=== PATIENT | male | born 1945 | race Caucasian/White ===

== ENCOUNTER 2024-02-23 17:20 | Emergency (ER) | payer OTHER ==
[~2024-02-23] VITALS: Ht 177.8 cm; Wt 77.2 kg
[2024-02-23] MEDS ORDERED: ETOMIDATE (2MG/ML) 20ML VIAL IV ONE (17:26)
[2024-02-23] MEDS ORDERED: MIDAZOLAM DRIP 50 mg/50mL 50 ML IV ONE (17:27)
[2024-02-23] MEDS ORDERED: ROCURONIUM 10MG/ML 10ML VIAL IV ONE (17:28)
[2024-02-23] MEDS ORDERED: MIDAZOLAM DRIP 50 mg/50mL 50 ML IV SCH (17:30)
[2024-02-23] MEDS: ETOMIDATE (2MG/ML) 20ML VIAL IV ONE (17:31)
[2024-02-23] MEDS: ROCURONIUM 10MG/ML 10ML VIAL IV ONE (17:31)
[2024-02-23] MEDS: NOREPINEPHRINE 8 MG/250ML KIT 250 ML IV ONE (17:44)
[2024-02-23] MEDS: NOREPINEPHRINE 8 MG/250ML KIT 250 ML IV SCH (18:00)
[2024-02-23 18:04] LABS: Basophils # (auto) 0 10 ^3/uL (0-0.2); Eosinophils # (auto) 0 10 ^3/uL (0-0.8); Eosinophils % (auto) 0.2 % (0.0-7.0); Hematocrit 39.9 % (41.0-53.0); Hemoglobin 12.9 g/dL (13.5-17.5); Lymphocytes # (auto) 0.5 10 ^3/uL (0.4-5.4); Lymphocytes % (auto) 7.1 % (10.0-50.0); Mean Corpuscular Hemoglobin 30.7 pg (28.0-32.0); Mean Corpuscular Hgb Conc. 32.3 g/dL (32.0-36.0); Mean Corpuscular Volume 95.1 fL (80.0-100.0); Monocytes # (auto) 0.3 10 ^3/uL (0-1.3); Monocytes % (auto) 4.8 % (0.0-12.0); Neutrophils # (auto) 5.9 10 ^3/uL (1.6-8.6); Neutrophils % (auto) 87.9 % (37.0-80.0); Nucleated Red Blood Cells % 0.1 %; Red Cell Distribution Width 14.4 % (11.8-14.3); White Blood Cell 6.8 10^3/uL (4.4-10.8)
[2024-02-23 18:21] LABS: INR 1.17 (0.9-1.15); Partial Thromboplastin Time 22.9 SEC (24.5-34.5); Prothrombin Time 12.3 sec (9.3-11.8)
[2024-02-23 18:22] LABS: Alanine Aminotransferase 17 U/L (7-40); Albumin 3.5 g/dL (3.2-4.8); Alkaline Phosphatase 67 U/L (46-116); Anion Gap 4 (5-15); Aspartate Aminotransferase 16 U/L (13-40); BUN/Creatinine Ratio 27.4 (10.0-20.0); Blood Urea Nitrogen 20 mg/dL (9-23); Calcium 9.2 mg/dL (8.5-10.1); Carbon Dioxide 34 mmol/L (20-30); Chloride 99 mmol/L (98-107); Magnesium 1.8 mg/dL (1.6-2.6); Potassium 4.1 mmol/L (3.5-5.1); Sodium 137 mmol/L (136-145)
[2024-02-23 18:23] LABS: Bilirubin, Total 0.9 mg/dL (0.2-1.0); Total Protein 5.7 g/dL (5.7-8.2)
[2024-02-23] MEDS: MORPHINE SULFATE INJ 2 MG/ml SYRG IV ONE (18:28)
[2024-02-23 18:29] LABS: Glucose 465 mg/dL (74-106)
[2024-02-23] MEDS: MIDAZOLAM DRIP 50 mg/50mL 50 ML IV SCH (18:29)
[2024-02-23] MEDS ORDERED: LABETALOL HCL 5 MG/ML 4ML SYRINGE IV ONE (18:30)
[2024-02-23] MEDS: LABETALOL HCL 5 MG/ML ML 20ML VIAL IV ONE (18:31)
[2024-02-23 18:34] VITALS: O2SAT 99
[2024-02-23 18:53] LABS: Base Excess 8.1 mmol/L (-2.0-2.0)
[2024-02-23] MEDS: PIPERACILLIN-TAZOB 3.375GM 100 ML IV ONE (19:03)
[2024-02-23] MEDS: InsuLIN REG 1unit/0.01ml Soln (100units/ml) IV ONE (19:04)
[2024-02-23 19:36] LABS: Urine Bacteria None Seen /hpf (None Seen)
[2024-02-23 19:59] LABS: Urine Blood TRACE /uL (Negative); Urine Clarity Clear (Clear); Urine Color Light-Yellow (Yellow); Urine Mucus FEW (None Seen); Urine Protein, UAD 1+ (Negative); Urine Specific Gravity 1.021 (1.001-1.035); Urine Urobilinogen Normal (Negative); Urine WBC 1 /hpf (0 - 3)
[2024-02-23 20:00] VITALS: PULSE 80; RESP 16; O2SAT 100
[2024-02-23 21:12] VITALS: BP 146/84; PULSE 72; RESP 16; TEMP 96.3; O2SAT 100
[2024-02-24 00:25] VITALS: BP 84/50; PULSE 80; RESP 12; TEMP 100.4; O2SAT 46
== END 2024-02-24 01:00 ==
LOC: EDBD 17:20 → ER 17:20
DX: J96.00 Acute respiratory failure, unspecified whether with hypoxia or hypercapnia (principal); I16.1 Hypertensive emergency; E11.65 Type 2 diabetes mellitus with hyperglycemia; R51.9 Headache, unspecified; Z79.899 Other long term (current) drug therapy
CPT/HCPCS: 31500; 36415; 36556; 36600; 70450; 71045; 80053; 81001; 82010; 82805; 82962; 83605; 83735; 83880; 84484; 85025; 85610; 85730; 87040; 87070; 87086; 87205; 93005; 96365; 96375; 99291; J1815; J2250; J2270; J2543